=== PATIENT | male | born 1970 | race Caucasian/White ===

== ENCOUNTER 2023-11-26 07:00 | Outpatient (CLI) | payer BC, SELFPAY ==
--- NOTE | 2023-11-26 07:14 | CT_ITS ---
WS: [id number] CT NECK TECHNIQUE: Contrast-enhanced CT of the neck with coronal and sagittal reformatted images. CLINICAL INFORMATION: DYSPHAGIA/LOCALIZED SWELLING,MASS LUMP,NECK COMPARISON: None. DLP: 235.[address] scans at [facility] use at least one of these dose optimization techniques: automated e xposure control; mA and/or kV adjustment per patient size (includes targeted exams where dose is matc hed to clinical indication); or iterative reconstruction. FINDINGS: Paranasal sinuses are well aerated. Mastoid air cells are well aerated. Normal posterior nasopharynx. Normal parapharyngeal fat. Parotid glands are normal. Submandibular glands are normal. No evidence o f supraglottic or glottic mass. Normal vallecula and piriform sinuses. Normal subglottic airway. A fe w tiny subcentimeter LEFT thyroid nodules. No cervical lymphadenopathy. Straightening of the normal cervical lordosis. Mild emphysematous change s in the lung apices. CT/CT neck w con* [id number] IMPRESSION: 1. No cervical lymphadenopathy. 2. Normal salivary glands. 3. No evidence of supraglottic or glottic mass. Normal subglottic airway. 4. A few tiny LEFT thyroid nodules. 5. No other remarkable findings.
[2023-11-26] MEDS: iohexol 350 mg/mL 500 mL Btl (per mL) IV (07:29)
== END 2023-11-26 07:01 | disposition home or self-care (01) ==
LOC: RAD 07:00
PROVIDERS: Visit Provider Specialist
DX: R13.10 Dysphagia, unspecified (principal); R22.1 Localized swelling, mass and lump, neck; E04.2 Nontoxic multinodular goiter
CPT/HCPCS: 70491